=== PATIENT | male | born 1995 ===

== ENCOUNTER 2017-02-09 12:08 | Emergency (ER) | payer OTHER ==
[2017-02-09 12:10] VITALS: BP 145/77; PULSE 91; RESP 20; TEMP 98.4; O2SAT 99
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
== END 2017-02-09 14:09 | disposition home or self-care (01) ==
LOC: H.ER 12:08
DX: S49.92XA Unspecified injury of left shoulder and upper arm, initial encounter (principal); M54.2 Cervicalgia; V49.49XA Driver injured in collision with other motor vehicles in traffic accident, initial encounter
CPT/HCPCS: 72040; 73030; 96372; 99283; J1885